=== PATIENT | male | born 1940 | race Caucasian/White ===

== ENCOUNTER → 2021-04-11 | Outpatient (CLI) | payer BC, MEDICARE ==
[~2021-04-11] MED LIST: ISOVUE-370 76% 100ML VIAL As Ordered ONE
--- NOTE | 2021-04-11 16:43 | REPVR ---
PROCEDURE INFORMATION: Exam: CT Angiography Neck With Contrast Exam date and time: 04/11/2021 3:42 PM Age: 80 years old Clinical indication: Other: Stenosis and occlusion TECHNIQUE: Imaging protocol: Computed tomography angiography of the neck with contrast. 3D rendering (Not supervised by radiologist): MIP and/or 3D reconstructed images were created by the technologist. Radiation optimization: All CT scans at this facility use at least one of these dose optimization techniques: automated exposure control; mA and/or kV adjustment per patient size (includes targeted exams where dose is matched to clinical indication); or iterative reconstruction. Contrast material: ISOVUE 370; Contrast volume: 100 ml; Contrast route: INTRAVENOUS (IV); COMPARISON: No relevant prior studies available. FINDINGS: Right common carotid artery: No stenosis. No dissection or occlusion. Right internal carotid artery: Mild atherosclerosis at the right carotid bifurcation does not contribute to ICA stenosis. Right external carotid artery: No occlusion or stenosis of the origin. Left common carotid artery: The mid to distal left common carotid artery is poorly visualized due to beam hardening artifact from adjacent refluxed venous contrast. No visible occlusion. Left internal carotid artery: Mild atherosclerosis at the left carotid bifurcation does not contribute to ICA stenosis. Left external carotid artery: No occlusion or stenosis of the origin. Right vertebral artery: To the extent visualized, the right vertebral artery appears grossly patent. Left vertebral artery: To the extent visualized, the left vertebral artery appears grossly patent. Soft tissues: Normal. No significant soft tissue swelling. Bones/joints: No acute fracture seen. Diffuse osseous demineralization. Moderate degenerative changes at C1-C2. Moderate cervical facet arthropathy. There is slight grade 1 degenerative anterolisthesis of C3 on C4. Lungs: The lung apices appear emphysematous. IMPRESSION: 1. There is a suboptimal degree of arterial opacity. 2. No acute vascular findings identified in the neck. 3. 0% right ICA stenosis. 4. 0% left ICA stenosis. 5. The vertebral arteries appear grossly patent. REFERENCES: NASCET CRITERIA. The degree of internal carotid artery stenosis is based on NASCET criteria. Normal is no stenosis. Mild is less than 50% stenosis. Moderate is 50-69% stenosis. Severe is 70% to 99% stenosis. Total occlusion is no detectable patent lumen. Electronically signed by: Ro Frye On 04/11/2021 16:43:13 PM
--- NOTE | 2021-04-11 17:11 | REPVR ---
PROCEDURE INFORMATION: Exam: CT Angiography Head With Contrast Exam date and time: 04/11/2021 3:42 PM Age: 80 years old Clinical indication: Other: Stenosis and occlusion TECHNIQUE: Imaging protocol: Computed tomographic angiography of the head with contrast. 3D rendering (Not supervised by radiologist): MIP and/or 3D reconstructed images were created by the technologist. Radiation optimization: All CT scans at this facility use at least one of these dose optimization techniques: automated exposure control; mA and/or kV adjustment per patient size (includes targeted exams where dose is matched to clinical indication); or iterative reconstruction. Contrast material: ISOVUE 370; Contrast volume: 100 ml; Contrast route: INTRAVENOUS (IV); COMPARISON: No relevant prior studies available. FINDINGS: Limitations: Suboptimal imaging. Limited evaluation. ANTERIOR CIRCULATION: Right internal carotid artery: The right ICA demonstrates calcified atherosclerosis which does not contribute to high-grade stenosis. Some limitations assessing the cavernous right ICA due to adjacent venous opacity. Right middle cerebral artery: No definite occlusion. Right anterior cerebral artery: No definite occlusion. Left internal carotid artery: The left ICA demonstrates calcified atherosclerosis which does not contribute to high-grade stenosis. Some limitations assessing the cavernous left ICA due to adjacent venous opacity. Left middle cerebral artery: No definite occlusion. POSTERIOR CIRCULATION: Right vertebral artery: No definite occlusion. Left vertebral artery: No definite occlusion. Basilar artery: No definite occlusion. Right posterior cerebral artery: No definite occlusion. Left posterior cerebral artery: No definite occlusion. Brain: The brain demonstrates diffuse volume loss. There is white matter hypodensity most consistent with chronic small vessel ischemic change. No visible evolving territorial infarct. No obvious hemorrhage. A focal, chronic appearing right cerebellar infarct. Cerebral ventricles: Enlarged probably reflecting volume loss. Orbits: Thinning of the lenses of the globes consistent with prior lens surgery. Paranasal sinuses: Retention cyst or polyp in the right maxillary sinus. IMPRESSION: 1. No proximal intracranial arterial stenosis or occlusion seen. 2. Considering motion artifacts and a suboptimal degree of arterial opacity, no proximal arterial occlusion identified. Electronically signed by: Ro Frye On 04/11/2021 17:10:24 PM
== END ==
LOC: M RAD 15:06
PROVIDERS: ATTEND Surgery Vascular Surgery
DX: I65.23 Occlusion and stenosis of bilateral carotid arteries (principal)
CPT/HCPCS: 70496; 70498; Q9967